=== PATIENT | male | born 1940 | race Caucasian/White ===

== ENCOUNTER 2016-08-17 15:11 | Inpatient (IN) | payer OTHER ==
[~2016-08-17] VITALS: Ht 170.1 cm; Wt 65.4 kg
[~2016-08-17 15:11] MED LIST: AUGMENTIN 875 M1 TAB PO; BACTRIM DS 8001 TA1 PO; BACTROBAN2% T; CIPROFLOXACIN HC5 ML OPH; KEFLEX500 M1 PO; MEDROL DOSEPAK4 MG PO; METFORMIN500 MG PO; ROBITUSSIN AC 110 ML PO; ZITHROMAX Z PA250 MG PO
[2016-08-17 15:15] VITALS: BP 106/53
[2016-08-17 16:45] LABS: HEMOGLOBIN 13.8 g/dl (14.0-18.0); MEAN CELL VOLUME 91.3 fl (80.0-94.0); MEAN CORPUSCULAR HGB 32.3 pg (27.0-31.0); MEAN CORPUSCULAR HGB CONC 35.4 g/dl (33.0-37.0); MEAN PLATELET VOLUME 10.5 fl (9.6-12.3); PLATELET COUNT AUTOMATED 149 10*3/uL (130-400); RED BLOOD COUNT 4.27 10*6/uL (4.50-5.90); WHITE BLOOD COUNT 3.8 10*3/uL (4.8-10.8)
[2016-08-17 16:53] LABS: INTERNATIONAL NORM RATIO 1.2 (2.0-3.5); PROTHROMBIN TIME 12.3 SECONDS (9.0-12.4)
[2016-08-17 17:02] LABS: ALBUMIN 3.6 gm/dl (3.1-4.5); ALKALINE PHOSPHATASE 261 U/L (45-117); BILIRUBIN, TOTAL 1.2 mg/dl (0.2-1.0); BUN 19 mg/dl (7-24); C-REACTIVE PROTEIN 3.36 MG/DL (0-0.3); CARBON DIOXIDE 26 mmol/L (21-32); CHLORIDE 100 mmol/L (98-107); CKMB 1.2 ng/ml (0.5-3.6); CPK 97 U/L (39-308); EST GLOM FILT AFRICAN AMERICAN > 60 ml/min; GLUCOSE 203 mg/dL (65-99); MAGNESIUM 1.8 mg/dL (1.5-2.1); POTASSIUM 3.7 mmol/L (3.5-5.1); SGOT/AST 110 IU/L (3-35); SGPT/ALT 108 U/L (12-78); SODIUM 133 mmol/L (136-145); TOTAL PROTEIN 6.8 gm/dL (6.4-8.2); TROPONIN I 0.029 ng/ml (<0.045)
[2016-08-17 17:04] LABS: ATYPICAL LYMPHS 1 % (0-0); LYMPHOCYTE # 0.4 10*3/uL (1.3-4.4); MONOCYTE # 0.3 10*3/uL (0.1-1.0); NEUTROPHIL # 3.1 10*3/uL (2.3-7.9); NEUTROPHILS 82 % (47-73); TOTAL CELLS COUNTED 100 #CELLS
[2016-08-17 17:05] LABS: PLATELET SUFFICIENCY NORMAL (NORMAL)
[2016-08-17 17:07] LABS: THYROID STIM HORMONE (HS) 0.552 uIU/ml (0.358-4.75)
[2016-08-17] MEDS ORDERED: PRAVACHOL40 MG PO (17:15)
[2016-08-17] MEDS ORDERED: NEURONTIN100 MG PO (17:17)
[2016-08-17] MEDS ORDERED: VIAGRA100 MG PO (17:17)
[2016-08-17 19:47] VITALS: BP 94/40
[2016-08-17 20:38] LABS: BILIRUBIN 1+ (NEGATIVE); BLOOD NEGATIVE (NEGATIVE); CLARITY SL CLOUDY (CLEAR); COLOR YELLOW (YELLOW); GLUCOSE 2+ (NEGATIVE); KETONE NEGATIVE (NEGATIVE); LEUKO ESTERASE NEGATIVE (NEGATIVE); NITRITE NEGATIVE (NEGATIVE); PROTEIN 1+ (NEGATIVE)
[2016-08-17 20:52] LABS: BACTERIA 2+; EPITHELIAL CELLS 0-2; RBC 0-2 rbc/hpf (0-2); URINE REFLEX COMMENT YES (NO)
[2016-08-17 21:00] VITALS: BP 106/57
[2016-08-18] VITALS (12 sets, daily range): BP systolic 92–113; BP diastolic 47–75
[2016-08-18 05:59] LABS: HEMOGLOBIN A1c 8.1 % (4.8-5.6)
[2016-08-18 06:14] LABS: ALBUMIN 2.9 gm/dl (3.1-4.5); CARBON DIOXIDE 25 mmol/L (21-32); CHLORIDE 108 mmol/L (98-107); EST GLOM FILT AFRICAN AMERICAN > 60 ml/min; MAGNESIUM 1.6 mg/dL (1.5-2.1); POTASSIUM 3.4 mmol/L (3.5-5.1); SGOT/AST 86 IU/L (3-35); SGPT/ALT 83 U/L (12-78); SODIUM 143 mmol/L (136-145); TOTAL PROTEIN 5.2 gm/dL (6.4-8.2)
[2016-08-18 06:27] LABS: MEAN CELL VOLUME 93.4 fl (80.0-94.0); MEAN CORPUSCULAR HGB 32.7 pg (27.0-31.0); MEAN PLATELET VOLUME 10.9 fl (9.6-12.3); PLATELET COUNT AUTOMATED 120 10*3/uL (130-400); RED BLOOD COUNT 3.46 10*6/uL (4.50-5.90); RED CELL DISTRI WIDTH 12.1 % (0-14.5); WHITE BLOOD COUNT 3.2 10*3/uL (4.8-10.8)
[2016-08-18 06:31] LABS: ALKALINE PHOSPHATASE 202 U/L (45-117); BILIRUBIN, TOTAL 0.7 mg/dl (0.2-1.0); BUN 15 mg/dl (7-24); CHOLESTEROL 111 mg/dL (<200); GLUCOSE 90 mg/dL (65-99); HDL CHOLESTEROL 39 mg/dl (40-60); LDL CHOLESTEROL 54 mg/dL (9-159); PHOSPHOROUS 2.5 mg/dL (2.5-4.9); TRIGLYCERIDES 92 mg/dl (<150); VLDL CHOLESTEROL 18 mg/dL (6-40)
[2016-08-18 06:40] LABS: HEMATOCRIT 32.3 % (42.0-52.0); HEMOGLOBIN 11.3 g/dl (14.0-18.0)
[2016-08-18 06:47] LABS: FOLIC ACID 20.34 ng/mL (>5.38); VITAMIN D, 25-HYDROXY 34.6 ng/mL (30-100)
[2016-08-18 07:16] LABS: BASOPHIL # 0.1 10*3/uL (0-0.1); BASOPHILS 3 % (0-1); LYMPHOCYTE # 0.3 10*3/uL (1.3-4.4); MONOCYTE # 0.3 10*3/uL (0.1-1.0); MYELOCYTES 1 % (0-0); NEUTROPHIL # 2.5 10*3/uL (2.3-7.9); NEUTROPHILS 78 % (47-73); PLATELET SUFFICIENCY LOW (NORMAL); POLYCHROMASIA SLIGHT; ROULEAUX SLIGHT; TOTAL CELLS COUNTED 100 #CELLS
[2016-08-18 12:44] LABS: CLARITY CLEAR; COLOR COLORLESS
[2016-08-18 12:55] LABS: CSF RBC < 1000 /uL
[2016-08-18 13:26] LABS: CSF LYMPHOCYTES 92 % (40-80); CSF MONOCYTES 8 % (15-45)
[2016-08-18 13:27] LABS: TUBE# 3
[2016-08-18 13:37] LABS: CSF GLUCOSE 78 mg/dL (40-70); CSF TOTAL PROTEIN 83.3 mg/dL (15-45)
[2016-08-18] MEDS ORDERED: DOXYCYCLINE MO100 M1 PO (16:31)
[2016-08-18 18:47] LABS: BILIRUBIN 1+ (NEGATIVE); BLOOD NEGATIVE (NEGATIVE); CLARITY SL CLOUDY (CLEAR); COLOR YELLOW (YELLOW); GLUCOSE 2+ (NEGATIVE); KETONE NEGATIVE (NEGATIVE); LEUKO ESTERASE NEGATIVE (NEGATIVE); NITRITE NEGATIVE (NEGATIVE); PH 5.5 (5.0-9.0); PROTEIN TRACE (NEGATIVE); SPECIFIC GRAVITY 1.025 (1.005-1.030); UROBILINOGEN >= 8.0 E.U./dl (0.2-1.0)
[2016-08-18 18:53] LABS: BACTERIA 2+; EPITHELIAL CELLS 0-2; RBC 0-2 rbc/hpf (0-2); URINE REFLEX COMMENT YES (NO)
[2016-08-19] VITALS: BP 92/50
[2016-08-19 01:28] VITALS: BP 100/52
[2016-08-19 04:00] VITALS: BP 92/60
[2016-08-19 06:26] LABS: HEMATOCRIT 34.7 % (42.0-52.0); MEAN CELL VOLUME 93.3 fl (80.0-94.0); MEAN CORPUSCULAR HGB 32.3 pg (27.0-31.0); MEAN CORPUSCULAR HGB CONC 34.6 g/dl (33.0-37.0); MEAN PLATELET VOLUME 11.1 fl (9.6-12.3); PLATELET COUNT AUTOMATED 123 10*3/uL (130-400); RED BLOOD COUNT 3.72 10*6/uL (4.50-5.90); RED CELL DISTRI WIDTH 12.4 % (0-14.5); WHITE BLOOD COUNT 3.7 10*3/uL (4.8-10.8)
[2016-08-19 07:00] LABS: BUN 15 mg/dl (7-24); CARBON DIOXIDE 26 mmol/L (21-32); CHLORIDE 106 mmol/L (98-107); EST GLOM FILT AFRICAN AMERICAN > 60 ml/min; GLUCOSE 102 mg/dL (65-99); POTASSIUM 3.3 mmol/L (3.5-5.1); SODIUM 141 mmol/L (136-145)
[2016-08-19 07:15] LABS: LYMPHOCYTE # 0.7 10*3/uL (1.3-4.4); MONOCYTE # 0.6 10*3/uL (0.1-1.0); NEUTROPHIL # 2.4 10*3/uL (2.3-7.9); NEUTROPHILS 65 % (47-73); PLATELET SUFFICIENCY LOW (NORMAL); TOTAL CELLS COUNTED 100 #CELLS
[2016-08-19 08:00] VITALS: BP 99/61
[2016-08-19 12:00] VITALS: BP 110/70
[2016-08-19] MEDS ORDERED: DOXYCYCLINE MO100 M1 PO (13:25)
[2016-08-19 16:00] VITALS: BP 104/62
[2016-08-20 06:16] LABS: HIV 1+2 AB + HIV1 P24 AG Non Reactive (Non Reactive)
[2016-08-21 18:06] LABS: IGM P23 AB Absent (.); IGM P39 AB Absent (.); IGM P41 AB Absent (.)
[2016-08-21 19:08] LABS: IGG P18 AB Absent (.); IGG P23 AB Absent (.); IGG P28 AB Absent (.); IGG P30 AB Absent (.); IGG P39 AB Absent (.); IGG P41 AB Present (.); IGG P45 AB Present (.); IGG P58 AB Absent (.); IGG P63 AB Absent (.); IGG P66 AB Absent (.); LYME IGG WB INTERPRETATION Negative (.)
== END 2016-08-19 16:41 | disposition home or self-care (01) | DRG 871 ==
LOC: ED 15:11 → EDHOLD 17:57 → 5E 17:57
PROVIDERS: Emergency Medicine; Internal Medicine Hospice and Palliative Medicine; Internal Medicine Infectious Disease; Internal Medicine Nephrology
PROC: B01B1ZZ Fluoroscopy of Spinal Cord using Low Osmolar Contrast (ICD-10-PCS; principal; 2016-08-18)
PROC: 009U3ZX Drainage of Spinal Canal, Percutaneous Approach, Diagnostic (ICD-10-PCS; principal; 2016-08-18)
DX: A41.9 Sepsis, unspecified organism (principal); G93.40 Encephalopathy, unspecified; D61.818 Other pancytopenia; E44.0 Moderate protein-calorie malnutrition; E11.65 Type 2 diabetes mellitus with hyperglycemia; E87.1 Hypo-osmolality and hyponatremia; D69.6 Thrombocytopenia, unspecified; A69.20 Lyme disease, unspecified; E87.8 Other disorders of electrolyte and fluid balance, not elsewhere classified; R65.20 Severe sepsis without septic shock; G56.03 Carpal tunnel syndrome, bilateral upper limbs; E86.0 Dehydration; E78.00 Pure hypercholesterolemia, unspecified; Z79.4 Long term (current) use of insulin; D72.810 Lymphocytopenia; R74.0 Nonspecific elevation of levels of transaminase and lactic acid dehydrogenase [LDH]; D64.9 Anemia, unspecified; E87.6 Hypokalemia; Z88.9 Allergy status to unspecified drugs, medicaments and biological substances; E80.6 Other disorders of bilirubin metabolism; Z90.49 Acquired absence of other specified parts of digestive tract; Z68.23 Body mass index [BMI] 23.0-23.9, adult

== ENCOUNTER 2019-10-15 00:45 | Inpatient (IN) | payer OTHER ==
[~2019-10-15] VITALS: Ht 171.4 cm; Wt 73.1 kg
[~2019-10-15 00:45] MED LIST changes: +DOXYCYCLINE MO100 M1 PO; +NEURONTIN100 MG PO; +PRAVACHOL40 MG PO; +VIAGRA100 MG PO
[2019-10-15 00:53] VITALS: BP 154/68
[2019-10-15 02:06] LABS: BILIRUBIN NEGATIVE; BLOOD NEGATIVE (NEGATIVE); CLARITY CLEAR (CLEAR); COLOR YELLOW (YELLOW); GLUCOSE 1+; KETONE NEGATIVE; LEUKO ESTERASE NEGATIVE (NEGATIVE); NITRITE NEGATIVE (NEGATIVE); PH 6.5 (4.5-8.0)
[2019-10-15 02:15] LABS: BASO # 0.1 10*3/uL (0.0-0.1); BASO % 0.6 % (0.0-1.0); EOS # 0.8 10*3/uL (0.0-0.4); EOS % 6.3 % (1.0-4.0); HEMATOCRIT 39.7 % (42.0-52.0); LYMPH # 2.1 10*3/uL (1.3-4.4); LYMPH % 16.3 % (27.0-41.0); MEAN CELL VOLUME 94.1 fl (80.0-94.0); MEAN CORPUSCULAR HGB 31.8 pg (27.0-31.0); MEAN CORPUSCULAR HGB CONC 33.8 g/dl (33.0-37.0); MONO % 7.6 % (3.0-9.0); NEUT # 8.9 10*3/uL (2.3-7.9); NEUT % 68.8 % (47.0-73.0); PLATELET COUNT AUTOMATED 262 10*3/uL (130-400); RED BLOOD COUNT 4.22 10*6/uL (4.50-5.90); RED CELL DISTRI WIDTH 11.9 % (0-14.5)
[2019-10-15 02:32] LABS: ALBUMIN 3.7 gm/dl (3.1-4.5); ALKALINE PHOSPHATASE 240 U/L (45-117); BUN 16 mg/dl (7-24); CHLORIDE 106 mmol/L (98-107); CREATININE 0.91 mg/dL (0.70-1.30); LIPASE 120 U/L (73-393); POTASSIUM 4.1 mmol/L (3.5-5.1); SGOT/AST 8 IU/L (3-35); SGPT/ALT 19 U/L (12-78); SODIUM 141 mmol/L (136-145); TOTAL PROTEIN 7.1 gm/dL (6.4-8.2)
--- NOTE | 2019-10-15 03:25 | NUR ---
PT DOES NOT WISHED TO CHANGE INTO GOWN AT THIS TIME.
--- NOTE | 2019-10-15 03:31 | NUR ---
PER MD HARTLEY,PT PROVIDED ICE CHIPS.PT UPDATED ON CURRENT PLAN OF CARE.
--- NOTE | 2019-10-15 04:56 | NUR ---
PT DENIES ANY OPEN WOUNDS SORES OR CUTS AT THIS TIME.
[2019-10-15 05:05] VITALS: BP 119/56
--- NOTE | 2019-10-15 05:42 | NUR ---
AWAITING FLOOR RN TO RETURN CALL.
[2019-10-15 06:00] VITALS: BP 112/70
--- NOTE | 2019-10-15 06:00 | NUR ---
Time: 0600 A 79 year old male admitted to 4E under services of FISH KENDALL DO. Pt. arrived via bed from ER. Chief complaint: lower abd pain started yesterday. MIGNON HU
[2019-10-15 08:00] VITALS: BP 126/69
[2019-10-15 12:00] VITALS: BP 119/61
--- NOTE | 2019-10-15 14:44 | NUR ---
PATIENT LEFT AGAINST MEDICAL ADVICE. IV REMOVED. NOTIFIED KORINA, SHIFT DIRECTOR. NOTIFIED RESIDENT . PATIENT WAS AMBULATORY OFF FLOOR.
== END 2019-10-15 15:03 | disposition left against medical advice (07) | DRG 392 ==
LOC: ED 00:45 → EDHOLD 04:59 → 4E 05:11
PROVIDERS: Emergency Medicine Emergency Medical Services; ADMIT Internal Medicine; ATTEND Internal Medicine
DX: K57.32 Diverticulitis of large intestine without perforation or abscess without bleeding (principal); E11.9 Type 2 diabetes mellitus without complications; K59.00 Constipation, unspecified; E78.00 Pure hypercholesterolemia, unspecified; E11.40 Type 2 diabetes mellitus with diabetic neuropathy, unspecified; D72.829 Elevated white blood cell count, unspecified; D53.9 Nutritional anemia, unspecified; E11.65 Type 2 diabetes mellitus with hyperglycemia; R00.1 Bradycardia, unspecified; Z88.8 Allergy status to other drugs, medicaments and biological substances; Z90.49 Acquired absence of other specified parts of digestive tract; Z80.0 Family history of malignant neoplasm of digestive organs; Z79.899 Other long term (current) drug therapy; Z53.29 Procedure and treatment not carried out because of patient's decision for other reasons

== ENCOUNTER 2021-09-05 15:51 | Emergency (ER) | payer OTHER ==
[~2021-09-05] VITALS: Wt 68.0 kg
[2021-09-05 16:09] VITALS: BP 120/64
[2021-09-05 16:15] LABS: BILIRUBIN Negative (Negative); BLOOD Negative (Negative); COLOR Yellow (Yellow); GLUCOSE 3+ (Negative); KETONE Negative (Negative); LEUKO ESTERASE Negative (Negative); NITRITE Negative (Negative); PH 5.5 (4.5-8.0); SPECIFIC GRAVITY <= 1.005 (1.001-1.030); UROBILINOGEN 0.2 E.U./dl (0.0-1.0)
[2021-09-05 16:16] LABS: CLARITY Clear (Clear)
[2021-09-05 16:22] LABS: URINE AMPHETAMINES < 1000 (1000ng/ml); URINE BARBITURATES < 200 (200ng/ml); URINE BENZODIAZEPINES < 200 (200ng/ml); URINE CANNABINOIDS (THC) < 50 (50ng/ml); URINE COCAINE < 300 (300ng/ml); URINE METHADONE < 300 (300ng/ml); URINE OPIATES < 300 (300ng/ml)
[2021-09-05 16:23] LABS: EPITHELIAL CELLS 0-2; URINE PHENCYCLIDINE < 25 (25ng/ml); WBC 0-2 wbc/hpf (0-5)
[2021-09-05 16:39] LABS: BASO # 0.1 10*3/uL (0.0-0.1); BASO % 0.8 % (0.0-1.0); EOS # 0.5 10*3/uL (0.0-0.4); EOS % 4.8 % (1.0-4.0); HEMATOCRIT 41.7 % (42.0-52.0); LYMPH # 2.1 10*3/uL (1.3-4.4); LYMPH % 21.6 % (27.0-41.0); MEAN CELL VOLUME 94.1 fl (80.0-94.0); MEAN CORPUSCULAR HGB 32.1 pg (27.0-31.0); MEAN CORPUSCULAR HGB CONC 34.1 g/dl (33.0-37.0); MEAN PLATELET VOLUME 10.7 fl (9.6-12.3); MONO # 0.6 10*3/uL (0.1-1.0); MONO % 6.7 % (3.0-9.0); NEUT # 6.2 10*3/uL (2.3-7.9); NEUT % 65.7 % (47.0-73.0); PLATELET COUNT AUTOMATED 283 10*3/uL (130-400); RED BLOOD COUNT 4.43 10*6/uL (4.50-5.90); RED CELL DISTRI WIDTH 11.7 % (0-14.5); WHITE BLOOD COUNT 9.5 10*3/uL (4.8-10.8)
[2021-09-05 16:54] LABS: ALKALINE PHOSPHATASE 217 U/L (45-117); BUN 12 mg/dl (7-24); CHLORIDE 106 mmol/L (98-107); CREATININE 0.97 mg/dL (0.70-1.30); SGOT/AST 16 IU/L (3-35); SGPT/ALT 17 U/L (12-78); SODIUM 141 mmol/L (136-145)
[2021-09-05 16:55] LABS: ACETAMINOPHEN (TYLENOL) < 5.0 ug/ml (10-30); ETHYL ALCOHOL < 3.0 mg/dl (<3)
== END 2021-09-06 09:43 | disposition home or self-care (01) ==
LOC: ED 15:51
PROVIDERS: Physician Assistant
DX: Z13.89 Encounter for screening for other disorder (principal); I69.911 Memory deficit following unspecified cerebrovascular disease; E11.9 Type 2 diabetes mellitus without complications

== ENCOUNTER 2022-04-11 14:51 | Inpatient (IN) | payer OTHER ==
[~2022-04-11] VITALS: Ht 182.8 cm; Wt 77.1 kg
[2022-04-11 15:30] VITALS: BP 117/70
[2022-04-11] MEDS ORDERED: ALOGLIPTIN12.5 MG PO (16:27)
[2022-04-11] MEDS ORDERED: JARDIANCE25 MG PO (16:31)
[2022-04-11] MEDS ORDERED: NAPROSYN500 MG PO (16:33)
[2022-04-11] MEDS ORDERED: VIAGRA100 MG PO (16:35)
[2022-04-11 20:00] VITALS: BP 115/60
[2022-04-12 06:41] LABS: BASO # 0.1 10*3/uL (0.0-0.1); BASO % 0.6 % (0.0-1.0); EOS # 0.6 10*3/uL (0.0-0.4); EOS % 6.5 % (1.0-4.0); LYMPH # 2.2 10*3/uL (1.3-4.4); LYMPH % 22.6 % (27.0-41.0); MEAN CELL VOLUME 92.9 fl (80.0-94.0); MEAN CORPUSCULAR HGB 32.6 pg (27.0-31.0); MEAN CORPUSCULAR HGB CONC 35.1 g/dl (33.0-37.0); MEAN PLATELET VOLUME 10.7 fl (9.6-12.3); MONO # 0.8 10*3/uL (0.1-1.0); MONO % 7.6 % (3.0-9.0); NEUT # 6.2 10*3/uL (2.3-7.9); NEUT % 62.4 % (47.0-73.0); PLATELET COUNT AUTOMATED 325 10*3/uL (130-400); RED CELL DISTRI WIDTH 12.3 % (0-14.5); WHITE BLOOD COUNT 9.9 10*3/uL (4.8-10.8)
[2022-04-12 08:08] VITALS: BP 129/59
[2022-04-12 09:21] LABS: ALKALINE PHOSPHATASE 219 U/L (46-116); BUN 11 mg/dl (9-23); CHLORIDE 105 mmol/L (98-107); CHOLESTEROL 135 mg/dL (<200); LDL CHOLESTEROL 77 mg/dL (9-159); SGPT/ALT 12 U/L (10-49); THYROID STIM HORMONE (HS) 1.801 uIU/ml (0.550-4.780); TOTAL PROTEIN 6.8 gm/dL (6.0-8.0); TRIGLYCERIDES 83 mg/dl (<150)
[2022-04-12 17:48] LABS: BILIRUBIN Negative (Negative); BLOOD Negative (Negative); CLARITY Clear (Clear); COLOR Yellow (Yellow); GLUCOSE 2+ (Negative); KETONE Negative (Negative); LEUKO ESTERASE Negative (Negative); NITRITE Negative (Negative); UROBILINOGEN 0.2 E.U./dl (0.0-1.0)
[2022-04-12 18:03] LABS: EPITHELIAL CELLS 0-2; WBC 0-2 wbc/hpf (0-5)
[2022-04-12 20:00] VITALS: BP 125/56
[2022-04-13 07:28] VITALS: BP 119/56
[2022-04-13 20:00] VITALS: BP 121/63
[2022-04-14 07:23] VITALS: BP 155/87
[2022-04-14 20:00] VITALS: BP 121/68
[2022-04-15 07:19] VITALS: BP 115/58
[2022-04-15 20:00] VITALS: BP 129/68
[2022-04-16 08:23] VITALS: BP 122/68
[2022-04-16 20:10] VITALS: BP 135/65
[2022-04-17 07:22] VITALS: BP 128/66
[2022-04-17 20:00] VITALS: BP 130/68
[2022-04-18 08:00] VITALS: BP 118/64
[2022-04-18 20:00] VITALS: BP 112/58
[2022-04-19 07:28] VITALS: BP 118/66
[2022-04-19 20:00] VITALS: BP 139/74
[2022-04-20 07:39] VITALS: BP 122/66
[2022-04-20] MEDS ORDERED: MEMANTINE HCL10 MG PO (08:18)
[2022-04-20] MEDS ORDERED: MIRTAZAPINE15 M2 PO (08:18)
[2022-04-20] MEDS ORDERED: RIVASTIGMINE1 EAC2 T (08:18)
== END 2022-04-20 12:17 | DRG 883 ==
LOC: 3N 14:51
PROVIDERS: ADMIT Psychiatry & Neurology Psychiatry; ATTEND Psychiatry & Neurology Psychiatry
DX: F63.81 Intermittent explosive disorder (principal); E11.65 Type 2 diabetes mellitus with hyperglycemia; F03.918 Unspecified dementia, unspecified severity, with other behavioral disturbance; D64.9 Anemia, unspecified; R41.3 Other amnesia; R21 Rash and other nonspecific skin eruption; E11.42 Type 2 diabetes mellitus with diabetic polyneuropathy; E78.00 Pure hypercholesterolemia, unspecified; Z90.49 Acquired absence of other specified parts of digestive tract; Z88.8 Allergy status to other drugs, medicaments and biological substances; Z79.899 Other long term (current) drug therapy